=== PATIENT | female | born 1965 | race Caucasian/White ===

== ENCOUNTER 2016-09-17 20:37 | Emergency (ER) | payer BC, OTHER ==
[2016-09-17 20:37] VITALS: BMI 38.5
[2016-09-17 20:45] VITALS: BP 131/87; TEMP 98.6
[2016-09-17] MEDS ORDERED: DiphenhydrAMINE 12.5 mg/5 ml LIQ UD (5 ml) PO STA (21:09)
--- NOTE | 2016-09-17 21:09 | ED PDOC ---
Arrival/HPI <AndrewMauro - Last Filed: 09/17/16 21:30> - General Historian: Patient <Dilcia Murphy - Last Filed: 09/18/16 06:50> - General Chief Complaint: Allergic Reaction Time Seen by Provider: 09/17/16 21:04 - History of Present Illness Narrative History of Present Illness (Text): 09/17/16 21:05 Patient is a 51 y/o with no significant pmh presenting with persistent erythematous rash. Patient states she had the rash on/off for 2 weeks. Patient saw PMD a week ago was giving prednisone shot, and sent home with medrol dose pack, reports the rash improved temporarily, but has worsened for the past 2 days. Patient admits to pruritus. Patient reports the skin feels hot after. Denies cp, sob, n/v/d. Patient is not sure what she might be allergic to, denies new shampoos, lotions, but states she recently used a new perfume and laundry detergent. Denies sick contact, no-one else in the house has the rash. 09/17/16 21:10 (Dilcia Murphy) Past Medical History - Provider Review Nursing Documentation Reviewed: Yes - Travel History Have you recently traveled outside [place] w/in the past 3 mons?: No - Infectious Disease Hx of Infectious Diseases: None - Tetanus Immunization Tetanus Immunization: Unknown - Past Medical History Past Medical History: No Previous - Cardiac Hx Cardiac Disorders: No - Pulmonary Hx Respiratory Disorders: No - Neurological Hx Neurological Disorder: No - HEENT Hx HEENT Disorder: No - Renal Hx Renal Disorder: No - Endocrine/Metabolic Hx Endocrine Disorders: No - Hematological/Oncological Hx Blood Disorders: No - Integumentary Hx Dermatological Disorder: No - Musculoskeletal/Rheumatological Hx Musculoskeletal Disorders: No - Gastrointestinal Hx Gastrointestinal Disorders: Yes Hx Gastroesophageal Reflux: Yes - Genitourinary/Gynecological Hx Genitourinary Disorders: Yes (HEAVY MENSES) - Psychiatric Hx Substance Use: No - Past Surgical History Past Surgical History: Non-Contributing - Surgical History Other/Comment: D/C THERMAL ABLATION ECTOPIC X4 - Anesthesia Hx Anesthesia: Yes Hx Anesthesia Reactions: No Hx Malignant Hyperthermia: No - Suicidal Assessment Feels Threatened In Home Enviroment: No <Dilcia Murphy - Last Filed: 09/18/16 06:50> Family/Social History - Physician Review Nursing Documentation Reviewed: Yes Family/Social History: No Known Family HX Smoking Status: Light Smoker < 10 Cigarettes Daily Hx Alcohol Use: Yes Hx Substance Use: No Hx Substance Use Treatment: No <Dilcia Murphy - Last Filed: 09/18/16 06:50> Allergies/Home Meds <Mauro Morales - Last Filed: 09/17/16 21:30> <Dilcia Murphy - Last Filed: 09/18/16 06:50> Allergies/Adverse Reactions: Allergies codeine Allergy (Verified 09/17/16 20:41) ITCHING Home Medications: Home Meds Medication Instructions Recorded Confirmed Methylprednisolone [Medrol Dose 1 tab PO DAILY 09/17/16 09/17/16 Pack (21 tabs)] Review of Systems - Review of Systems Constitutional: Normal Eyes: Normal ENT: Normal Respiratory: Normal Cardiovascular: Normal Gastrointestinal: Normal, Food Intolerance Genitourinary Female: Normal Musculoskeletal: Normal Skin: Rash, Pruritis Neurological: Normal Endocrine: Normal Hemo/Lymphatic: Normal Psychiatric: Normal <Dilcia Murphy - Last Filed: 09/18/16 06:50> Physical Exam Temperature: Afebrile Blood Pressure: Normal Pulse: Regular Respiratory Rate: Normal Appearance: Positive for: Well-Appearing, Non-Toxic, Comfortable Pain Distress: None Mental Status: Positive for: Alert and Oriented X 3 - Systems Exam Head: Present: Atraumatic, Normocephalic Pupils: Present: PERRL Extroacular Muscles: Present: EOMI Conjunctiva: Present: Normal Mouth: Present: Moist Mucous Membranes Neck: Present: Normal Range of Motion Respiratory/Chest: Present: Clear to Auscultation, Good Air Exchange. No: Respiratory Distress, Accessory Muscle Use, Wheezes, Retracting, Rhonchi Cardiovascular: Present: Regular Rate and Rhythm, Normal S1, S2. No: Murmurs Abdomen: Present: Normal Bowel Sounds. No: Tenderness, Distention Upper Extremity: Present: Normal Inspection. No: Edema Lower Extremity: Present: Normal Inspection. No: Edema Neurological: Present: GCS=15 Skin: Present: Warm, Dry, Rashes (on the trunck, face and groin. errythemarous, blanching rash, warm to touch. no drainage.) Psychiatric: Present: Alert, Oriented x 3, Normal Insight, Normal Concentration <Dilcia Murphy - Last Filed: 09/18/16 06:50> Vital Signs Temp Pulse Resp BP Pulse Ox 09/17/16 22:43 90 16 99 09/17/16 20:44 98.6 F 102 H 19 131/87 98 Medical Decision Making <Mauro Morales - Last Filed: 09/17/16 21:30> Re-evaluation Time: 22:20 Reassessment Condition: Improving,but remains with symptoms <Dilcia Murphy - Last Filed: 09/18/16 06:50> ED Course and Treatment: Pt seen and evaluated with medical device assembler. Pt presented for an erythematous pruritic rash. Pt notes she recently started using new perfume and laundry detergent. Aware and agree with HPI, clinical findings, plan, and management. 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 CIELO has examined the patient and agrees with the treatment plan. <Mauro Morales - Last Filed: 09/17/16 21:30> Disposition/Present on Arrival <Mauro Morales - Last Filed: 09/17/16 21:30> - Present on Arrival Any Indicators Present on Arrival: No History of DVT/PE: No History of Uncontrolled Diabetes: No Urinary Catheter: No History of Decub. Ulcer: No History Surgical Site Infection Following: None - Disposition Have Diagnosis and Disposition been Completed?: Yes Disposition Time: 22:27 Patient Plan: Discharge <Dilcia Murphy - Last Filed: 09/18/16 06:50> - Disposition Diagnosis: Urticaria, Allergic reaction Disposition: HOME/ ROUTINE Condition: STABLE Additional Instructions: Please follow up with developer programmer take prednisone for 4 more days and Pepcid. can take Benadryl as needed q6hrs for itch Go tot the nearest er if you experience chest pain, shortness of breath, fever or chills. Prescriptions: Famotidine [Pepcid] 20 mg PO DAILY #4 tab Prednisone 40 mg PO DAILY #4 tab.ds.pk Referrals: Maria Luz Seaman MD [Primary Care Provider] - Follow up with primary
[2016-09-17 22:44] VITALS: PULSE 90; RESP 16; O2SAT 99
== END 2016-09-17 22:44 | disposition home or self-care (01) ==
LOC: ED 20:37
DX: L50.9 Urticaria, unspecified (principal); T78.40XA Allergy, unspecified, initial encounter; X58.XXXA Exposure to other specified factors, initial encounter

== ENCOUNTER 2016-10-18 15:20 | Emergency (ER) | payer BC ==
[2016-10-18 15:44] VITALS: TEMP 98; BMI 34.3
--- NOTE | 2016-10-18 15:55 | ED PDOC ---
Arrival/HPI - General Chief Complaint: Headache Time Seen by Provider: 10/18/16 15:21 Historian: Patient - History of Present Illness Narrative History of Present Illness (Text): The patient is a 51yo female, past medical history of chronic migraines, presents to the emergency department for evaluation of headache, nausea, vomiting and body weakness present since this morning. Patient reports she woke up at 8AM this morning with a headache and has had 2 episodes of vomiting. She states she has been able to tolerate PO and ate some crackers and drank some coffee this morning. She additionally reports photophobia and irritation with loud sounds. The patient denies taking any medication for her pain. She offers no additional medical complaints. PCP: Dr. Seaman Time/Duration: 4-6 hours, Other (hx of chronic migraines) Symptom Course: Unchanged Past Medical History - Provider Review Nursing Documentation Reviewed: Yes - Infectious Disease Hx of Infectious Diseases: None - Tetanus Immunization Tetanus Immunization: Unknown - Past Medical History Past Medical History: No Previous - Cardiac Hx Cardiac Disorders: No - Pulmonary Hx Respiratory Disorders: No - Neurological Hx Neurological Disorder: No - HEENT Hx HEENT Disorder: No - Renal Hx Renal Disorder: No - Endocrine/Metabolic Hx Endocrine Disorders: No - Hematological/Oncological Hx Blood Disorders: No - Integumentary Hx Dermatological Disorder: No - Musculoskeletal/Rheumatological Hx Musculoskeletal Disorders: No - Gastrointestinal Hx Gastrointestinal Disorders: Yes Hx Gastroesophageal Reflux: Yes - Genitourinary/Gynecological Hx Genitourinary Disorders: Yes (HEAVY MENSES) - Psychiatric Hx Substance Use: No - Past Surgical History Past Surgical History: Non-Contributing - Surgical History Other/Comment: D/C THERMAL ABLATION ECTOPIC X4 - Anesthesia Hx Anesthesia: Yes Hx Anesthesia Reactions: No Hx Malignant Hyperthermia: No - Suicidal Assessment Feels Threatened In Home Enviroment: No Family/Social History - Physician Review Nursing Documentation Reviewed: Yes Family/Social History: No Known Family HX Smoking Status: Heavy Smoker > 10 Cigarettes Daily Hx Alcohol Use: Yes Frequency of alcohol use: Socially Hx Substance Use: No Hx Substance Use Treatment: No Allergies/Home Meds Allergies/Adverse Reactions: Allergies codeine Allergy (Verified 09/17/16 20:41) ITCHING Review of Systems - Review of Systems Constitutional: Other (weakness) Eyes: Photophobia ENT: Other (irritation with loud sounds) Neurological: Headache Physical Exam Vital Signs Temp Pulse Resp BP Pulse Ox 10/18/16 17:45 87 16 120/73 99 10/18/16 17:05 75 16 115/72 97 10/18/16 15:21 98.0 F 81 14 138/85 98 Temperature: Afebrile Blood Pressure: Normal Pulse: Regular Respiratory Rate: Normal Appearance: Positive for: Well-Appearing, Non-Toxic, Comfortable, Uncomfortable Pain Distress: None Mental Status: Positive for: Alert and Oriented X 3 - Systems Exam Head: Present: Atraumatic, Normocephalic Neck: Present: Normal Range of Motion Respiratory/Chest: Present: Clear to Auscultation, Good Air Exchange. No: Respiratory Distress, Accessory Muscle Use Cardiovascular: Present: Regular Rate and Rhythm Abdomen: Present: Normal Bowel Sounds. No: Tenderness, Distention, Peritoneal Signs Lower Extremity: Present: Normal Inspection. No: Edema Neurological: Present: GCS=15, CN II-XII Intact, Speech Normal Skin: Present: Warm, Dry, Normal Color. No: Rashes Psychiatric: Present: Alert, Oriented x 3, Normal Insight, Normal Concentration Medical Decision Making ED Course and Treatment: Impression: Chronic migraines Differential Diagnosis included but are not limited to: Plan: -- Labs -- NS 1000ml bolus -- Toradol 30 mg IVP -- Reglan 20 mg IVP -- Reassess and disposition Prior Visits: Notes and results from previous visits were reviewed. On 09/17/16 patient presented to this facility with complaints of erythematous rash; was discharged home with Rx pepcid and prednisone. Progress Notes: 10/18/16 17:17 The patient reports feeling much better; denies any headache at present. Pt stable for d/c home with instructions to follow up with her PCP. - Lab Interpretations Lab Results: 10/18/16 16:35 10/18/16 16:35 Lab Results 10/18/16 16:35: Sodium 138, Potassium 4.0, Chloride 104, Carbon Dioxide 26, Anion Gap 12, BUN 8, Creatinine 0.6, Est GFR ( Amer) > 60, Est GFR (Non- Af Amer) > 60, Random Glucose 120 H, Calcium 9.3, Magnesium 1.9, Total Bilirubin 0.7, AST 23, ALT 30, Alkaline Phosphatase 62, Lactate Dehydrogenase 375, Total Creatine Kinase 45, Troponin I < 0.01, Total Protein 7.2, Albumin 4.0 , Globulin 3.2, Albumin/Globulin Ratio 1.3 10/18/16 16:35: WBC 11.3 H, RBC 4.16, Hgb 13.2, Hct 39.5, MCV 95.0, MCH 31.7, MCHC 33.4, RDW 14.0, Plt Count 319, MPV 10.2, Gran % 79.5 H, Lymph % (Auto) 14.5 L, [place] % (Auto) 5.6, Eos % (Auto) 0.3 L, Baso % (Auto) 0.1, Gran # 9.03 H , Lymph # 1.6, [place] # 0.6, Eos # 0.0, Baso # 0.01 - EKG Interpretation EKG Interpretation (Text): Normal sinus rhythm Rate of 78 BPM Normal axis Normal intervals Interpreted by ED Physician: Yes - Medication Orders Current Medication Orders: Discontinued Medications Sodium Chloride (Sodium Chloride 0.9%) 1,000 mls @ 999 mls/hr IV .Q1H1M STA Stop: 10/18/16 16:57 Last Admin: 10/18/16 16:36 Dose: 999 mls/hr Ketorolac Tromethamine (Toradol) 30 mg IVP STAT STA Stop: 10/18/16 15:53 Last Admin: 10/18/16 16:35 Dose: 30 mg Metoclopramide HCl (Reglan) 20 mg IVP STAT STA Stop: 10/18/16 15:53 Last Admin: 10/18/16 16:35 Dose: 20 mg - Scribe Statement The provider has reviewed the documentation as recorded by the Lopez Cadena Provider Cotyibe Attestation: All medical record entries made by the Lopez were at my direction and personally dictated by me. I have reviewed the chart and agree that the record accurately reflects my personal performance of the history, physical exam, medical decision making, and the department course for this patient. I have also personally directed, reviewed, and agree with the discharge instructions and disposition. Disposition/Present on Arrival - Present on Arrival Any Indicators Present on Arrival: No History of DVT/PE: No History of Uncontrolled Diabetes: No Urinary Catheter: No History of Decub. Ulcer: No History Surgical Site Infection Following: None - Disposition Have Diagnosis and Disposition been Completed?: Yes Diagnosis: Migraine headache Disposition: HOME/ ROUTINE Disposition Time: 17:17 Condition: IMPROVED Discharge Instructions (ExitCare): Migraine Headache (ED) Additional Instructions: Thank you for letting us take care of you today. Your provider was Dr. Schilling. You were treated for a migraine headache. The emergency medical care you received today was directed at your acute symptoms. If you were prescribed any medication, please fill it and take as directed. It may take several days for your symptoms to resolve. Return to the Emergency Department if your symptoms worsen, do not improve, or if you have any other problems. Please contact your doctor or call one of the physicians/clinics you have been referred to that are listed on the Patient Visit Information form that is included in your discharge packet. Bring any paperwork you were given at discharge with you along with any medications you are taking to your follow up visit. Our treatment cannot replace ongoing medical care by a primary care provider (PCP) outside of the emergency department. Thank you for allowing the [facility] team to be part of your care today. Follow up with your doctor in 2-3 days for re-evaluation. Prescriptions: Ibuprofen [Motrin] 600 mg PO Q6 PRN #20 tab PRN Reason: Pain, Moderate (4-7) Referrals: Maria Luz Seaman MD [Primary Care Provider] - Follow up with primary
[2016-10-18] MEDS ORDERED: Sodium Chloride 0.9% 1,000 ML IV STA (15:57)
[2016-10-18 16:49] LABS: BASO # 0.01 K/mm3 (0.0-2.0); BASO % 0.1 % (0.0-3.0); EOS % 0.3 % (1.5-5.0); GRAN # 9.03 (1.4-6.5); GRAN % 79.5 % (50.0-68.0); HEMOGLOBIN 13.2 gm/dL (12.0-16.0); LYMPH # 1.6 (1.2-3.4); LYMPH % 14.5 % (22.0-35.0); MEAN CORPUSCULAR HEMOGLOBIN 31.7 pg (25.0-35.0); MEAN CORPUSCULAR HGB CONC 33.4 g/dl (31.0-37.0); MEAN PLATELET VOLUME 10.2 fl (7.0-11.0); MONO # 0.6 (0.1-0.6); MONO % 5.6 % (1.0-6.0); PLATELET COUNT 319 10^3/uL (120.0-450.0); RBC 4.16 10^6/uL (3.5-6.1); WHITE BLOOD COUNT 11.3 10^3/ul (4.5-11.0)
[2016-10-18 16:57] LABS: ALB/GLOB RATIO 1.3 (1.1-1.8); ALT/SGPT 30 U/L (7-56); AST/SGOT 23 U/L (15-39); BLOOD UREA NITROGEN 8 mg/dL (7-21); CALCIUM 9.3 mg/dL (8.4-10.5); GFR AFRICAN-AMERICAN > 60; GFR NON-AFRICAN AMERICAN > 60; MAGNESIUM 1.9 mg/dL (1.7-2.2)
[2016-10-18 17:08] LABS: TROPONIN I < 0.01 ng/mL
--- NOTE | 2016-10-19 09:26 | CARD ---
APPROVED REPORT EKG Measurement Heart [id number] [id number] <Conclusion> Normal sinus rhythm Normal ECG
[2016-10-19 11:56] VITALS: BP 120/73; PULSE 87; RESP 16; O2SAT 99
== END 2016-10-18 17:45 | disposition home or self-care (01) ==
LOC: ED 15:20
DX: G43.909 Migraine, unspecified, not intractable, without status migrainosus (principal)
CPT/HCPCS: 80053; 82550; 83615; 83735; 84484; 85025; 93005; 96374; 96375; 99285; J1885; J2765; J7040